=== PATIENT | male | born 1960 | race Caucasian/White ===

== ENCOUNTER 2018-10-10 06:38 | Emergency (ER) | payer OTHER ==
[~2018-10-10] VITALS: Ht 172.7 cm; Wt 73.0 kg
[2018-10-10 06:39] VITALS: BP 125/99
== END 2018-10-10 07:20 | disposition home or self-care (01) ==
LOC: ER 06:38
DX: S30.851A Superficial foreign body of abdominal wall, initial encounter (principal); Y35.893A Legal intervention involving other specified means, suspect injured, initial encounter; Y93.89 Activity, other specified; Y92.488 Other paved roadways as the place of occurrence of the external cause
CPT/HCPCS: 93005; 99283